=== PATIENT | female | born 1955 | race Caucasian/White ===

== ENCOUNTER 2019-02-04 14:31 | Observation (INO) | payer MEDICARE, SELFPAY ==
--- NOTE | 2019-01-30 16:26 | EKG12_ITS ---
Test Reason : PREOP Blood Pressure : / mmHG Vent. Rate : 077 BPM Atrial Rate : 077 BPM P-R Int : 148 ms QRS Dur : 078 ms QT Int : 396 ms P-R-T Axes : 057 014 037 degrees QTc Int : 448 ms Normal sinus rhythm Normal ECG Confirmed by TANYA YEPEZ ([id number]), publications editor QUE ARMSTRONG ([id number]) on 02/03/2019 2:02:13 PM Referred By: Esther Nixon Confirmed By:TANYA YEPEZ
[2019-01-30 17:16] LABS: Hematocrit 36.3 % (37-47); Hemoglobin 11.8 g/dL (12.0-15.0); Mean Corp Hgb Conc 32.5 g/dL (32-36); Mean Corpuscular Hgb 28.9 pg (27.0-32.0); Mean Corpuscular Volume 88.8 fL (81-99); Mean Platelet Vol. 9.6 fl (6.2-12.0); Platelet Count 241 K/mm3 (150-450); RBC Distribution Width SD 42.7 fl (35.1-43.9); Red Blood Count 4.09 M/mm3 (4.2-5.4)
[2019-01-30 17:28] LABS: Prothrombin Time (Protime)PT. 12.6 SECONDS (11.7-14.9)
[2019-01-30 17:29] LABS: Partial Thromboplast Time 27.7 Seconds (24.1-36.2)
[2019-01-30 18:06] LABS: AST(SGOT) 28 U/L (15-37); Alanine Aminotransfer ALT/SGPT 35 U/L (13-56); Albumin, Serum 3.4 g/dL (3.2-5.0); Alkaline Phosphatase 90 U/L (45-117); Bilirubin, Direct 0.12 mg/dL (0.00-0.30); Protein, Total 6.4 g/dL (6.4-8.2); Thyroid Stim Hormone (TSH) 1.51 uIU/mL (0.358-3.74)
[2019-02-04] VITALS (13 sets, daily range): BP systolic 89–139; BP diastolic 63–89; PULSE 66–94; RESP 16–18; TEMP 36.2–36.7; O2SAT 97–100; BMI 29.7; BMI 29.9
[2019-02-04] MEDS: Ondansetron 4 MG/2 ML Vial IV (06:10)
[2019-02-04] MEDS: Phenazopyridine 95 MG Tablet 190 MG PO (06:37)
[2019-02-04] MEDS: Acetaminophen 500 MG Tablet 1000 MG PO ×3 (06:38→23:35)
[2019-02-04] MEDS: Celecoxib 200 MG Capsule PO (06:38)
[2019-02-04] MEDS: Gabapentin 600 MG Tablet PO (06:38)
[2019-02-04] MEDS: Enoxaparin 40 MG/0.4 ML Syringe SC (06:39)
[2019-02-04] MEDS: dexAMETHasone 10 MG/ML Vial 8 MG IV (06:39)
[2019-02-04] MEDS: Magnesium Sulfate 4gm/100mL 4 GM/100 ML IV.SOLN. IV (06:40)
[2019-02-04] MEDS: Lactated Ringers 1,000 ML 40 ML IV ×2 (06:41→11:30)
[2019-02-04 06:55] LABS: Bedside Glucose 85 mg/dL (70-110)
--- NOTE | 2019-02-04 07:30 | HYST_PTH ---
PATIENT: HIMA ATKINSON LOC: [facility] U#:[id number] AGE/SX: 63/F ROOM: MS314 RE02/04/[address]: Dr. Esther Nixon MD : 1955 BED: 1 DIS: 02/05/2019 SPEC #: [id number] RECD: 02/04/19 11:53 STATUS: AMBROCIO REJackie #: [id number] CHRISTINE: 02/04/19 07:[address]: Esther Nixon DEPT: SURGICAL PATHOLOGY RECD BY: Nestor Cintron ENTERED: 02/04/19 13:18 SP TYPE: HYSTERECT OTHR DR: MD Dr. Noemi Simon MD Tissues: Uterus, NOS Procedures: Surgery Specimen Level V HEADER OPERATION: Anterior and posterior repair, SSLF, possible dermis, mid urethra PRE-OP DIAGNOSIS: Incomplete uterovaginal prolapse; intrinsic sphincter deficiency; mixed incontinence; postmenopausal atrophic vaginitis TISSUE SUBMITTED: Uterus, cervix, bilateral ovaries, fallopian tubes and left ovarian cyst MICROSCOPIC DIAGNOSIS Uterus, hysterectomy: Cervix - hyperkeratosis, nabothian cysts and minimal chronic inflammation. Endometrium - inactive endometrium with focal cystic change. Myometrium - adenomyosis. Right fallopian tube - benign paratubal cysts. Right ovary - serous cyst adenofibroma. Left fallopian tube - benign paratubal cysts. Left ovary - corpora albicantia. AM:jean 02/05/19 COMMENT Case has been reviewed in consultation with Dr. Mackey who concurs with the above diagnosis. IDC:SJ MICROSCOPIC DESCRIPTION Slides are reviewed. GROSS DESCRIPTION Received in fixative is one container labeled with the patient's name and designated uterus. The specimen consists of a uterus with attached cervix and attached left fallopian tube and ovary and a detached cystic right ovary and fallopian tube. The uterus with cervix measures 8 x 4.5 x 2.5 cm and weighs 52 gm. The ectocervix is oval in contour. No ectocervical lesions are identified. The endocervical canal measures 3.2 cm in length and is grossly unremarkable. The triangular endometrial cavity measures 3 x 3 cm. The endometrium is light mobley and measures up to 0.1 cm in thickness. The right and left fallopian tubes are similar in appearance. Both are discontinuous in their mid portions suggestive of previous tubal ligation. The fimbriated end of the right fallopian tube is not distinct. A smooth, glistening cystic right ovary measures 8 x 6.5 x 1 cm. The external surface contains no papillary excrescences. The inner cyst wall lining likewise is smooth and glistening and free of excrescences or nodularity. The cyst wall ranges in thickness from 0.1 to 0.2 cm. No tubo-ovarian adhesions are identified. The left fallopian tube measures 5 cm in length and 0.5 cm in average diameter. A normal fimbriated end is visible. The adjacent left ovary is light mobley in color measures 3.5 x 2 x 1 cm. No tubo-ovarian adhesions are seen and sections do not reveal mass lesions. Registered Phlebotomist Part Time sections are submitted in nine cassettes as follows: 1 - anterior cervix, 2 - posterior cervix, 3 - anterior uterine wall, 4??posterior uterine wall, 5 - right fallopian tube, 6 - right cystic ovary, membrane (roll), 7 - additional left cystic ovary, 8 - left fallopian tube, 9 - left ovary. / AM:jean 02/04/19 TC:5 CPT: 95185
[2019-02-04] MEDS: Lubricating Jelly 60 GM Tube 30 GM TOPICAL (08:14)
[2019-02-04] MEDS: Bupivacaine Mpf 0.5% 30 ML VIAL (08:20)
[2019-02-04] MEDS: Estrogens,Conj. 1 Tube 1 DOSE (10:54)
--- NOTE | 2019-02-04 11:15 | OP.PCM_ITS ---
Problem List (1) Uterovaginal prolapse, incomplete Status: Acute (2) Stress incontinence (female) (male) Status: Acute Report of Operation Date of Procedure: 02/04/19 Pre-Operative Diagnosis: incomplete uterovaginal prolapse, stress incontinence Post-Operative Diagnosis: same Surgery/Procedure Performed:: posterior repair, sacrospinous ligament fixation, midurethral sling, cystoscopy Description of Surgical Findings:: both ureters with urine out at end of case. no complications. Type of Anesthesia:: General Estimated Blood Loss (mL): 25cc Description of Procedure: The patient is a 63-year-old female who presented to the office with pelvic organ prolapse desiring surgical intervention in combination with hysterectomy and oophorectomy. After undergoing urodynamics and office evaluation, informed consent was obtained. The patient was taken to the operating room and placed on the operating room table. Anesthesia monitored the head, neck, airway, IV access and vital signs throughout the case. Once anesthesia was appropriately administered, the patient was placed in dorsal lithotomy position, the pessary was removed and she was prepped and draped in usual sterile fashion. The case was then turned over to Dr. Newsome who performed a laparoscopic assisted vaginal hysterectomy etc. She closed the vaginal cuff and transverse fashion. At this time the Shah catheter was draining the urinary bladder which was empty. The anterior vaginal length was significantly shorter in the posterior and the prolapse defect was not significant. Attention was turned toward the posterior vaginal wall. It was injected submucosally with 1% lidocaine with epinephrine. Sharp and blunt dissection ensued until the rectovaginal fascia was identified bilaterally. On the patient's right side dissection continued until the initial spine was palpable in the sacral spinous ligament was freed from surrounding tissues. And Ethibond suture was passed through the ligament using the Capio device. The suture was brought out at the apex in full-thickness fashion. The rectovaginal fascia was brought together using interrupted 2-0 Vicryl. A 2 layer closure was performed. A perineoplasty was done and increased the posterior support. The posterior vaginal wall was closed using running interlocking 2-0 Vicryl. The mid urethra was identified and injected submucosally. A 1.5 cm vertical midline incision was made in sharp and blunt dissection ensued on either side of the urethra with care being taken to avoid entry into the urethra. The alto's mid urethral sling was placed with the trochars. It lay flat against the urethra without tension. The tensioning suture was cut and the incision was closed with running interlocking 2-0 Vicryl. A cystourethroscopy was then performed revealing no evidence of injury to the urinary bladder and no foreign body incl uding suture. Bilateral ureteral jets were observed. The Shah catheter was reinserted and 10 cc was placed in the balloon. The vagina was packed with Premarin cream and vaginal packing. Patient was awakened and taken to the recovery room in good condition. There were no complications during the procedure. Grafts/Implants Used: Altis midurethral sling - Complications none - Admit VTE Documentation VTE Present on Admission: Yes VTE Mechan Device Prophylaxis: SCD's VTE Pharm Prophylaxis ordered?: Yes
[2019-02-04] MEDS: Ketorolac 15 MG/ML Vial IV ×3 (12:15→23:35)
--- NOTE | 2019-02-04 13:11 | NURSING ---
report received from PACU. Patient's reported blood pressure 90/63. SHAKE BACKBOARD NOTCHER Kary to discuss BP in relation to patient's baseline BP with Anesthesia prior to transport to floor.
--- NOTE | 2019-02-04 14:03 | PCM.OPRPT ---
Report of Operation Date of Procedure: 02/04/19 Pre-Operative Diagnosis: Somatic uterovaginal prolapse, left ovarian cyst Post-Operative Diagnosis: Same Surgery/Procedure Performed:: Laparoscopic assisted vaginal hysterectomy with bilateral salpingo-oophorectomy and lysis of adhesions around large left ovarian cyst-of note remainder procedure performed by Dr. Nixon entered in separate op note Description of Surgical Findings:: Large left ovarian cyst that was adhered to the left pelvic sidewall, the uterus and the posterior cul-de-sac. Normal-appearing right tube and ovary. Small normal-appearing uterus. local area network systems adminstrator: Filomena Bullock Type of Anesthesia:: General Anesthesiologist: Ly Chacko Special Medications: none Specimen's removed: uterus, bilateral tubes and ovaries and cervix Drains: rondon Fluids Replaced: see other report Description of Procedure: The patient was taken to the operating room where she was prepped and draped in the dorsal lithotomy position. Her arms were tucked to the side and padded and her legs were placed in the yellowfin stirrups. Care was taken to ensure that she was placed in a neurologically safe and neutral position. A weighted speculum was placed in the vagina and the anterior lip of the cervix was grasped with a single-tooth tenaculum. The uterus sounded to 8 centimeters. The [ZUMI] uterine manipulator was placed and secured. The Rondon catheter was placed to straight drain. Attention was turned to the abdominal portion of the case. Before skin incisions were made they were infiltrated with 0.5% Marcaine solution for local anesthetic. A 5 mm intraumbilical incision was made and while tenting the anterior abdominal wall up with towel clamps a 5 mm blade less trocar and sleeve were advanced directly into the peritoneal cavity. Peritoneal placement was confirmed with the laparoscope the pneumoperitoneum was created, and the underlying abdominal contents were intact. The patient was placed in Trendelenburg and the above findings were noted. Right and left lateral 5 mm trochars were placed under direct visualization without difficulty. The right infundibulopelvic ligament was clamped, sealed and transected with the LigaSure device. The large left ovarian cyst was noted. It was freed up from the physiological adhesions to the colon. I was then able to enter the peritoneum along the left pelvic sidewall and dissected off carefully. I then dissected off the posterior wall. In the posterior cul-de-sac the adhesions were filmy as were they to the uterus. This took some time and manipulation of the cyst to be able to remove it with out rupturing it. It was very simple appearing and smooth-walled. There were no excrescences or no studding anywhere else in the peritoneal cavity. I was unable to isolate the infundibulopelvic ligament which was clamped, sealed and transected with the LigaSure device. I did away from the uterus by clamping, sealing and transecting the utero-ovarian ligament. I did this in order to be able to better manipulate it and remove it from the pelvic sidewall. Took approximately 30 minutes of extra time to carefully dissect the ovary off the pelvic sidewall without rupturing it. The round ligaments were clamped sealed and transected and a window was made in the peritoneum. The bladder flap was dissected down with the LigaSure device and blunt dissection and the uterine arteries were then skeletonized. The uterine arteries were clamped, sealed and transected on both sides with the LigaSure device. At this point the pedicles were all examined and found to be hemostatic. The umbilical port site was stretched and a large Endo Catch bag was placed through this. The large ovarian cyst was swept into this and secured. Attention was turned to the vaginal portion of the case. 1% lidocaine with dilute epinephrine solution was used to infiltrate the anterior vaginal epithelium over the cervix. An incision was made from 3 to 9:00 across the anterior vaginal epithelium and the vaginal epithelium was dissected back with blunt sharp dissection. The anterior colpotomy incision was made. Posterior cul-de-sac was then entered sharply. The uterosacral ligament was then secured in a Kristin clamp ensuring that the posterior and anterior peritoneum were contained within the clamp. It was clamped, transected and suture-ligated. The remaining portion of the cardinal ligament and any remaining portion of the uterine arteries were clamped, transected and suture-ligated. The uterus was then brought out through the colpotomy incision. I then made an attempt to bring the bag out through the vagina, but it would not even come close to fitting. I then out the bag up securely against the vaginal cuff and made an incision in the bag and then the ovary and drained the clear cyst fluid out of the ovary. Over 500 cc of cyst fluid were was removed then the remainder of the ovary and tube delivered in the bag intact. The posterior vaginal cuff was run with a 2-0 Vicryl suture in a running locked fashion. The pedicles were examined and pinned to be hemostatic. The vaginal cuff was then closed in a horizontal fashion with interrupted 0 Vicryl [id number] sutures. Care was taken to secure the vagina to the uterosacral ligaments. The umbilical site fascia was closed with a [id number] 0 Vicryl suture. The skin incisions were then closed with skin glue by the EVENT PROMOTIONS COORDINATOR with me present in the operative suite. The case was then turned over to to complete her portion. Sponge and needle counts were correct for my portion. Grafts/Implants Used: none for this portion - Complications none - Admit VTE Documentation VTE Present on Admission: No VTE Mechan Device Prophylaxis: SCD's VTE Pharm Prophylaxis ordered?: Yes
[2019-02-04] MEDS: oxyCODONE 5 MG Tablet PO ×2 (14:39→20:05)
[2019-02-04] MEDS: Lactated Ringers 1,000 ML 70 ML IV (18:20)
[2019-02-04] MEDS: Docusate Sodium 100 MG Capsule PO (21:39)
[2019-02-05 03:05] VITALS: BP 140/82; PULSE 84; RESP 16; TEMP 36.9; O2SAT 98
[2019-02-05 05:43] LABS: Hemoglobin 11.4 g/dL (12.0-15.0); Mean Corp Hgb Conc 32.6 g/dL (32-36); Mean Corpuscular Hgb 29.5 pg (27.0-32.0); Mean Corpuscular Volume 90.4 fL (81-99); Mean Platelet Vol. 9.3 fl (6.2-12.0); Platelet Count 225 K/mm3 (150-450); RBC Distribution Width CV 13.2 % (11.6-14.6); RBC Distribution Width SD 43.8 fl (35.1-43.9); Red Blood Count 3.87 M/mm3 (4.2-5.4); White Blood Count 7.9 K/mm3 (4.4-11.0)
[2019-02-05] MEDS: Acetaminophen 500 MG Tablet 1000 MG PO ×2 (05:56→12:10)
[2019-02-05] MEDS: Ketorolac 15 MG/ML Vial IV ×2 (05:56→12:09)
--- NOTE | 2019-02-05 06:40 | NURSING ---
Shah catheter and vaginal packing removed at this time; pt tolerated well.
[2019-02-05] MEDS: 0.9% NaCl Peripheral Flush Adult/Peds IV ×2 (08:07→12:09)
[2019-02-05 08:08] VITALS: PULSE 90
--- NOTE | 2019-02-05 08:11 | PN_ITS ---
Physical Exam Subjective: Up in bed, no complaints now. Nauseated last night, resolved. Shah and packing out, not yet voided. - Physical Exam Vital Signs Temp 98.5 F 02/05/19 03:05 Pulse 84 02/05/19 03:05 Resp 16 02/05/19 03:05 BP 140/82 H 02/05/19 03:05 Pulse Ox 98 02/05/19 03:05 Intake & Output 02/03/19 02/04/19 02/05/19 23:59 23:59 23:59 Intake Total 3454.37 / 3954.37 2084.33 / 2084.33 Output Total 870 / 2545 2825 / 2825 Balance 2584.37 / 1409.37 -740.67 / -740.67 Weight: 72 kg Intake: Oral 1000 / 1500 1200 / 1200 IV fluid/meds 898 / 898 Intake, IV Amount 1556.37 / 1556.37 884.33 / 884.33 Cleocin 900 MG In Dextrose 5%- 106 / 106 Water 100 ML @ 150 mls/hr IV PREOP ONE Rx#:[id number] Garamycin 280 MG In Dextrose 5% 57 / 57 -Water 50 ML @ 114 mls/hr IVPB PREOP ONE Rx#:[id number] Ketalar 35 MG In Syringe 1 EACH 0.7 / 0.7 @ 0 mls/hr IV .Q0M [facility] Rx#: [id number] Lactated Ringers 1,000 ML @ 40 1292.67 / 1292.67 mls/hr IV .Q25H [facility] Rx#: [id number] Lactated Ringers 1,000 ML @ 70 884.33 / 884.33 mls/hr IV .[id number] [facility] Rx#: [id number] Magnesium Sulfate 4gm/100mL 4 100 / 100 GM/100 ML4 gm In 100 ml @ 200 mls/hr IV PREOP ONE Rx#: [id number] Output: Urine 750 / 2425 2825 / 2825 Emesis 120 / 120 General: Alert, Oriented x3, Cooperative, No apparent distress HEENT: Atraumatic, Normocephalic Oral: Moist Mucosa Neck: Supple Lungs: Normal air movement Cardiovascular: Regular rate Abdomen: Soft Rectal: Exam deferred Extremities: - - SCD's on calfs Skin: No rashes Musculoskeletal: No Muscle Wasting Neurological: Cranial nerves II-XII grossly intact Psych/Mental Status: Normal Affect Laboratory Tests Past 24 Hrs 02/05/19 05:22 WBC 7.9 RBC 3.87 L Hgb 11.4 L Hct 35.0 L MCV 90.4 MCH 29.5 MCHC 32.6 RDW Std Deviation 43.8 RDW Coeff of Edyta 13.2 Plt Count 225 MPV 9.3 Medical Necessity - Tobacco Use Smoking Status: Former smoker Tobacco Use: Non-smoker Assessment/Plan All Active Problems Uterovaginal prolapse, incomplete (Acute) Stress incontinence (female) (male) (Acute) Await trial of void, home today. Follow up in the office
--- NOTE | 2019-02-05 08:13 | PCM.DC.URO ---
Discharge Diet: No Restrictions Discharge Activity: May not drive while taking narcotic pain medications., May Shower, - - no tub bathing, no swimming no lifting over 5 pounds, no exercise, no strenuous activity no intercourse May resume sexual activity in: 8 weeks Call your doctor if your incision/area has: Sudden Increased Bleeding, Foul Smelling Discharge Call your doctor if you observe: Fever of 101 or Higher, Inability to urinate, Inability to have a bowel movement, Shortness of breath, Chest pain, Calf discomfort, Uncontrolled pain Additional Dressing/Incision Instructions:: continue estrogen cream in vagina Allergies/Adverse Reactions: Allergies Penicillins Allergy (Verified 02/04/19 05:54) Unknown sulfamethoxazole [From Bactrim] Adverse Reaction (Verified 02/04/19 05:54) Nausea/Vom/Diarrhea trimethoprim [From Bactrim] Adverse Reaction (Verified 02/04/19 05:54) Nausea/Vom/Diarrhea Medications to take at Discharge Atorvastatin Calcium [Lipitor] 20 mg PO QHS 01/28/19 B-Complex with Vitamin C [Super B with Vit C] 1 ea PO DAILY 01/28/19 Calcium Carbonate [Calcium] 1,200 mg PO DAILY 01/28/19 Cholecalciferol (VIT D3) [Vitamin D] 1,000 unit PO DAILY 01/28/19 Clonidine HCl [Catapres] 0.1 mg PO BID 01/28/19 Colchicine [Colcrys] 0.6 mg PO DAILY 01/28/19 Diclofenac [Voltaren] 75 mg PO BIDCM 01/28/19 Hydroxychloroquine Sulfate [Plaquenil] 100 mg PO QHS 01/28/19 Hydroxychloroquine [Plaquenil] 200 mg PO DAILYCM 01/28/19 Methimazole [Tapazole] 5 mg PO DAILY 01/28/19 Methimazole [Tapazole] 7.5 mg PO WESA 01/28/19 Methocarbamol [Robaxin-750] 750 mg PO TID 01/28/19 RX: Omeprazole 40 mg PO DAILY 01/28/19 traMADol [Ultram (G)] 100 mg PO TID 01/28/19 Orders to be completed after discharge: 12 Lead EKG [CVS] Time Frame: 01/28/19, Facility: [facility], Location: Cardiovascular Services Primary Care Physician: Reji Gómez MD [Primary Care Provider] - Test Results: Test results from this visit will be discussed in further detail at your follow-up appointment, if applicable. Please Follow Up With: Esther Nixon MD When: 2 weeks, call for appt Proposed Discharge Date: 02/05/19
--- NOTE | 2019-02-05 09:51 | CASEMGMT ---
As per preadmission RN, pt has living will but is unable to bring in the document. Pt does not have medical POA form and declined further information. SERA Schilling
[2019-02-05] MEDS: Docusate Sodium 100 MG Capsule PO (10:11)
[2019-02-05 10:19] VITALS: BP 151/76; PULSE 76; RESP 18; TEMP 37.1; O2SAT 99
[2019-02-05] MEDS: oxyCODONE 5 MG Tablet PO (11:25)
[2019-02-05 13:37] VITALS: BP 146/75; PULSE 81; RESP 18; TEMP 37.1; O2SAT 100
--- NOTE | 2019-02-05 14:49 | PCM.PN.OB ---
Patient Problems: Active and Suspected Problems Uterovaginal prolapse, incomplete (Acute) Stress incontinence (female) (male) (Acute) Subjective: Patient seen this am at 0900. The patient states overall she did well overnight. Pain is well controlled. No nausea or vomiting. Catheter and vaginal packing were removed this morning and when I saw the patient she had been up to void yet. - Physical Exam General: Alert, Cooperative, No apparent distress Abdomen: Soft, Non-Distended, Tender - appropriately Skin: Incision - they are clean, dry and intact Vital Signs Temp Pulse Resp BP Pulse Ox 98.8 F 81 18 146/75 H 100 02/05/19 13:37 02/05/19 13:37 02/05/19 13:37 02/05/19 13:37 02/05/19 13:37 Oxygen Flow Rate (L/min) 6 Oxygen Delivery Method Room Air Weight: 72 kg Body Mass Index (BMI) 29.9 Intake and Output for Last 24 Hours 02/03/19 02/04/19 02/05/19 23:59 23:59 23:59 Intake Total 3454.37 / 3954.37 2084.33 / 2084.33 Output Total 870 / 2545 3800 / 3800 Balance 2584.37 / 1409.37 -1715.67 / -1715.67 Laboratory Tests Past 24 Hrs 02/05/19 05:22 WBC 7.9 RBC 3.87 L Hgb 11.4 L Hct 35.0 L MCV 90.4 MCH 29.5 MCHC 32.6 RDW Std Deviation 43.8 RDW Coeff of Edyta 13.2 Plt Count 225 MPV 9.3 Medical Necessity - Tobacco Use Smoking Status: Former smoker Tobacco Use: Non-smoker Assessment/Plan All Active Problems Uterovaginal prolapse, incomplete (Acute) Stress incontinence (female) (male) (Acute) POD#1 doing well operative report findings reviewed pathology pending hgb stable postop management per Dr. Nixon
--- NOTE | 2019-02-07 10:37 | PCM.HP.BLA ---
History and Physical Date of Admission: 02/04/19 Pre-Op History and Physical ? HPI: The patient is a 63 year old female presenting for pre-operative visit. She is scheduled for?LAVH, bilateral salpingo-oophorectomy, for?symptomatic uterovaginal prolapse, anticipation of uterovaginal prolapse repair by pelvic floor's product support sales representative, and large left ovarian cyst on?02/04/19. ??Procedure discussed along with risks, benefits and complications. ?Other alternatives discussed for management. Consent form signed??Yes.? PAST?MEDICAL?HISTORY PAST MEDICAL HISTORY Diagnosis Date ? Absolute anemia 01/29/2015 ? Allergic rhinitis ? ? Cervical spondylosis ? ? Complex cyst of uterine adnexa ? ? Left 4 cm simple cyst ? Cyclical vomiting with nausea 03/30/2016 ? secondary to sinus drainage. ? DDD (degenerative disc disease), lumbar 07/12/2015 ? Degenerative cervical spinal stenosis ? ? Degenerative joint disease of hand ? ? 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 Essential hypertension with goal blood pressure less than 140/90 09/30/2015 ? Ex-smoker 09/29/2014 ? Quit 2012 smoke 1 PPD from [age] (38 yrs) ? Gastroesophageal reflux disease without esophagitis 01/29/2015 ? Sees Dr. Boyce ? Graves disease 08/06/2012 ? Sees Dr. Alarcon. ? Hand joint pain ? ? Erosive OA; also on tramadol due to the pain ? Headache ? ? Hip pain ? ? ?Left ? History of colon polyps 09/29/2014 ? Hyperthyroidism ? ? Hypomagnesemia ? ? Inflammatory spondylopathy (HCC) ? ? Insomnia ? ? Knee pain ? ? Bilateral, consistent with chondromalacia patella ? Known medical problems ? ? Localized, primary osteoarthritis of the hand ? Known medical problems ? ? Long-term drug therapy- ?HCQ; Colcrys ? Known medical problems ? ? Multiple-level cervical spondylosis with radiculopathy-DR Bello ? Known medical problems ? ? Solitary nodule of lower lung 4 mm ? Leukopenia ? ? ?Very mild leukopenia, without critical lymphopenia or neutropenia; could be due to colchicine or hydroxychloroquine, but not significant enough to require change in therapy ? Low back pain ? ? Lumbar facet arthropathy 07/13/2015 ? Lumbar spondylosis ? ? Lung nodule 09/29/2014 ? Sees Dr. calvin On CT done at [place] 05/22/2014, . Stable 06/2015 repeat 06/2016 ? Migraine ? ? Mixed hyperlipidemia 09/29/2014 ? MRSA infection 01/20/2015 ? Multiple joint pain ? ? Muscle spasm 09/29/2014 ? Right shoulder area: related to psoriatic arthritis. ? Numbness of upper limb ? ? Bilateral fingers ? Osteoarthritis of foot joint ? ? Bilateral ? Osteoarthritis of knee ? ? Osteoarthritis of multiple joints ? ? Other migraine without status migrainosus, not intractable 01/29/2015 ? Ovarian cyst 09/29/2014 ? Pain in elbow ? ? Mild medial epicondylitis, right ? Pain in finger ? ? Left 3rd, Dr. Washington ? Pain in wrist ? ? Left, consistent with ext carpi ulnaris tendinitis ? Polyarthropathy ? ? ?Dr. Lopez ? Post-menopausal 10/04/2014 ? Primary osteoarthritis 10/18/2016 ? Psoriatic arthritis (HCC) 09/29/2014 ? Sees Dr. Carbajal. ? Recurrent sinusitis ? ? Renal cyst 09/29/2014 ? Seen on [place] CT 05/22/2014, CT 11/2014 Rt simple cyst ? ? Rotator cuff syndrome ? ? Seasonal allergies 09/29/2014 ? Sees Dr. Perry. ? Shoulder pain ? ? Simple renal cyst ? ? R kidney 1.6 cm ? Vitamin D deficiency ? ? ? PAST?SURGICAL?HISTORY PAST SURGICAL HISTORY Procedure Laterality Date ? CHOLECYSTECTOMY HX ? ? ? COLONOSCOPY ? 12/20/2015 ? Dr. Boyce, repeat in 2020 ? OSTEOTOMY CLAVICLE Right 11/01/2016 ? Right distal clavicle excision ? TONSILLECTOMY HX ? CURRENT?MEDICATIONS Current Outpatient Medications Medication Sig Dispense Refill ? calcium carbonate (CALTRATE) 600 mg calcium (1,500 mg) tab Take 600 mg by mouth twice daily. ? ? ? ergocalciferol, vitamin D2, (VITAMIN D2 ORAL) Take 1 tablet by mouth once daily. ? ? ? cloNIDine HCl (CATAPRES) 0.1 mg tablet Take 1 tablet by mouth twice daily. 180 tablet 1 ? metHIMazole (TAPAZOLE) 5 mg tablet 1.5 pill on Sunday and Sunday, all other days 1 pill per day, total 8 pills per week. 110 tablet 3 ? fluticasone (FLONASE) 50 mcg/actuation nasal spray Use 1 [place] in each nostril twice daily. 1 Bottle 5 ? atorvastatin (LIPITOR) 20 mg tablet Take 1 tablet by mouth once daily. 90 tablet 1 ? diclofenac, EC, (VOLTAREN) 75 mg EC tablet Take 1 tablet by mouth twice daily. For pain/inflammation. Take with food. ? ? ? methocarbamol (ROBAXIN) 750 mg tablet Take 1 tablet by mouth four times daily. Per Dr. Golden ? 0 ? diclofenac sodium (VOLTAREN) 1 % topical gel Apply 2 g to affected area four times daily. Apply 3-4times per day on painful joints. ?Per Dr. golden ?Indications: OSTEOARTHRITIS, OSTEOARTHRITIS OF THE KNEE 1 Tube 1 ? colchicine (COLCRYS) 0.6 mg tablet Take 1 tablet by mouth once daily. Per Dr. Golden ? 0 ? hydroxychloroquine (PLAQUENIL) 200 mg tablet Take 1 tablet by mouth twice daily. Per Dr. Golden ? 0 ? vitamin b complex (B COMPLETE) tab Take 1 tablet by mouth once daily. ? 0 ? ondansetron orally disintegrating (ZOFRAN ODT) 4 mg disintegrating tablet Take 1 tablet by mouth every 8 hours as needed. 15 tablet 5 ? diphenhydrAMINE (BENADRYL) 25 mg capsule Take 25 mg by mouth every 6 hours as needed. ? ? ? omeprazole (PRILOSEC) 20 mg capsule Take 2 capsules by mouth once daily. ? 0 ? estradiol (ESTRACE) 0.01 % (0.1 mg/gram) vaginal cream insert 1 (ONE) gram vaginally THREE TIMES WEEKLY DIRECTED FOR 90 DAYS ? 3 ? traMADol (ULTRAM) 50 mg tablet Take 1-2 tablets by mouth every 8 hours as needed for up to [address] Celeste ? ? ? No current facility-administered medications for this visit.? ? ALLERGIES:?Penicillins; Bactrim [Sulfamethoxazole-Trimethoprim] ? PERSONAL HISTORY:? SOCIAL?HISTORY Social History ??Socioeconomic History ?Marital status: ?Spouse name: Not on file ?Number of children: 1 ?Years of education: 12 ?Highest education level: Not on file ??Occupational History ?Occupation: loan clerk ?Employer: [employer] ??Social Needs ?Financial resource strain: Not on file ?Food insecurity: ?Worry: Not on file ?Inability: Not on file ?Transportation needs: ?Medical: Not on file ?Non-medical: Not on file ??Tobacco Use ?Smoking status: Former Smoker ?Packs/day: 1.00 ?Years: 38.00 ?Pack years: 38 ?Types: Cigarettes ?Start date: 12/23/1973 ?Quit date: 09/06/2011 ?Years since quittin.4 ?Smokeless tobacco: Never Used ?Tobacco comment: ?20-39 cigs/day. ??Substance and Sexual Activity ?Alcohol use: No ?Drug use: No ?Sexual activity: Not Currently ??Lifestyle ?Physical activity: ?Days per week: Not on file ?Minutes per session: Not on file ?Stress: Not on file ??Relationships ?Social connections: ?Talks on phone: Not on file ?Gets together: Not on file ?Attends scientology service: Not on file ?Active member of club or organization: Not on file ?Attends meetings of clubs or organizations: Not on file ?Relationship status: Not on file ?Intimate partner violence: ?Fear of current or ex partner: Not on file ?Emotionally abused: Not on file ?Physically abused: Not on file ?Forced sexual activity: Not on file ??Other Topics ?Concerns: ? Service: Not Asked ?Blood Transfusions: Not Asked ?Caffeine Concern: No ?Uses caffeine; Type: coffee, tea occassional, and soda seldom; Amount: moderate (equiv to 1-3 8oz coffee/day) ?Occupational Exposure: Not Asked ?Hobby Hazards: Not Asked ?Sleep Concern: No ?Stress Concern: Not Asked ?Weight Concern: Not Asked ?Special Diet: No ?Back Care: Not Asked ?Exercise: No ?Bike Helmet: Not Asked ?Seat Belt: Yes ?Self-Exams: No ??Social History Narrative ?Not on file ? FAMILY HISTORY:? FAMILY?HISTORY FAMILY HISTORY Problem Relation Age of Onset ? Thyroid Mother ?hyper ? Stroke Mother ? ? other (Diabetes mellitus) Mother ? ? other (Heart disease) Mother ? ? other (Rheumatoid arthritis) Mother ? ? other (leukemia) Brother ? ? Thyroid Daughter ?hypo ? Thyroid Sister ?hypo ? Diabetes Brother ? ? Diabetes Brother ? ? Heart Brother ? ? other (fibromyalgia) Sister ? ? Ovarian cancer Sister ? ? Heart Sister ? ? REVIEW OF SYMPTOMS: GENERAL: denies fevers or chills ENDOCRINOLOGY: has not been on steroids Cardiology : denies palpitations or chest pain Respiratory: denies SOB or cough Hematology: denies history of prolonged bleeding or easy bruising or VTE Allergy: Denies history of personal or family history of allergy to anesthesia ? ? PHYSICAL EXAMINATION: ? VITALS:?Blood pressure 122/86, height 5' 1.5 (1.562 m), weight 162 lb (73.5 kg). ? GENERAL:??The patient is well nourished, well hydrated in no acute distress. ?, The patient is oriented to time, place, and person. NECK:?Supple. No lynphadenopathy, normal thyroid, no thyromegaly. LUNGS:?Clear to auscultation bilaterally. no wheezes, rhonchi or rales ? IMPRESSION:?Symptomatically uterovaginal prolapse, large left ovarian cyst, appears simple, normal CA-125 ? PLAN:???The risks/benefits/alternatives and personal involved for the planned?LAVH, bilateral salpingoophorectomy?were reviewed with the patient. Her questions were answered to her satisfaction and she desires to proceed. ?Consent was signed. ?I reviewed with her postop instructions and expectations.??Pelvic floor support surgery will be for performed by Dr. mora, consent for this and H&P done separately.??I discussed with the patient that there is a low likelihood of malignancy, but until final pathology is reviewed, I will not know this for certain. ?If there is no underlying malignancy, this may require further surgical staging or follow-up. ?Patient states understanding and agreement with plan. ?Proceed with surgery locally. ? ? I have reviewed and updated past medical and surgical history, medications and allergies? Noemi Newsome M.D.
== END 2019-02-05 14:51 | disposition home or self-care (01) ==
LOC: SDC 16:27 → MS3 02-05 06:52
PROVIDERS: Anesthesiology; Obstetrics & Gynecology; Admitting Provider Urology; Family Provider Family Medicine; PCP Family Medicine; Referring Provider Urology; Visit Provider Urology
PROC: (CPT 57250; principal; 2019-02-04 07:05)
PROC: (CPT 58260; 2019-02-04 07:05)
DX: N81.2 Incomplete uterovaginal prolapse (principal); N39.46 Mixed incontinence; N95.2 Postmenopausal atrophic vaginitis; N88.8 Other specified noninflammatory disorders of cervix uteri; N72 Inflammatory disease of cervix uteri; D27.0 Benign neoplasm of right ovary; K21.9 Gastro-esophageal reflux disease without esophagitis; M19.90 Unspecified osteoarthritis, unspecified site; E78.00 Pure hypercholesterolemia, unspecified; I10 Essential (primary) hypertension; N83.292 Other ovarian cyst, left side; Z87.891 Personal history of nicotine dependence; Z79.899 Other long term (current) drug therapy
CPT/HCPCS: 00940; 57250; 57288; 58552; 36415; 80076; 82962; 84443; 85027; 85610; 85730; 86850; 86900; 86901; 88307; 93005; 96374; 96376; 99218; J7120; A4216; G0378; G0379; J2405

== ENCOUNTER → 2024-08-14 | Outpatient (CLI) | payer MEDICARE, MEDICAID, SELFPAY ==
--- NOTE | 2024-08-14 07:55 | CT_ITS ---
PROCEDURE: LOW DOSE CT LUNG SCREENING 08/14/2024 REASON FOR EXAM: PERSONAL HISTORY OF NICOTINE DEPENDENCE TECHNIQUE: Low Dose CT Lung screening without contrast. Coronal and Sagittal reconstruction series were provided. One or more dose reduction techniques were used (e.g., Automated exposure control, adjustment of the mA and/or kV according to patient size, use of iterative reconstruction technique). REFERENCE LINK: [facility] Lung-RADS COMPARISON: None. FINDINGS: Lungs/Pleura:The lungs are clear. There is a small ground-glass nodule in the right upper lobe on image 44 of series 2 measuring 3.6 mm. There is a perifissural nodule in the left upper lobe measuring 3.5 mm on image 56 of series 2. A pulmonary nodule in the left lung apex measures 2.9 mm on image 27 of series 2. A nodule in the left lower lobe measures 4.7 mm on image 149 of series 2. No pleural effusion or pneumothorax. Cardiovascular:The heart is normal in size.Mild coronary artery calcifications are present.The aorta and pulmonary arteries are unremarkable. Pericardium:No effusion. Mediastinum:Unremarkable. Lymph nodes:There is a borderline enlarged lymph node in the left axilla measuring 1 cm in short axis. Bones:No acute osseous abnormality.The bones are diffusely osteopenic. There is a vertebral hemangioma at the T9 vertebral body. Soft tissues:Unremarkable. Upper abdomen:Unremarkable. CT/Low Dose CT Lung Screening IMPRESSION: 1. A few scattered pulmonary nodules are present measuring up to 4.7 mm. Lung rads category 2: Benign. Follow-up low-dose CT protocol in 12 months. 2. Borderline enlarged left axillary lymph node, which is indeterminate, possib ly reactive. Reading [facility]
== END | disposition home or self-care (01) ==
LOC: CT 07:54
PROVIDERS: PCP Family Medicine; Referring Provider Family Medicine; Visit Provider Family Medicine
DX: Z12.2 Encounter for screening for malignant neoplasm of respiratory organs (principal); Z87.891 Personal history of nicotine dependence
CPT/HCPCS: 71271